=== PATIENT | female | born 1980 | race Two or more races ===

== ENCOUNTER 2017-08-16 15:59 | Emergency (ER) | payer OTHER ==
--- NOTE | 2017-08-16 16:01 | EDPHY ---
H & P HPI/ROS: HPI CHIEF COMPLAINT: Multiple complaints HISTORY OF PRESENT ILLNESS: Patient is a 36-year-old female she is otherwise healthy with no significant medical history does not take any daily medications she presents emergency room with multiple complaints. She reports approximately an hour ago she was standing and starting to household cook. She felt all the sudden very lightheaded. She felt that her feet were sweating, she felt nauseous. She states she got this pain that she describes as sharp stabbing pain in her epigastric region that radiates into her chest. Additionally she reports that her neck felt tight were stressed. She currently feels nauseous. She states that when she goes to stand up she noticed that she felt lightheaded. She reports that she has a dry mouth. Feet are sweaty. Feels anxious. Denies crushing chest pain, denies numbness or tingling in arms, denies severe neck pain. Describes her neck discomfort is tense in the back of her neck. Past Medical History: She reports her primary care doctor just told her that her vitamin-D is very low. Past Surgical History: No significant surgical history Social History: Denies daily use drugs alcohol tobacco products Family History: Noncontributory ROS REVIEW OF SYSTEMS: A comprehensive 10 point review of systems is otherwise negative aside from elements mentioned in the history of present illness. Exam Constitutional appears well nontoxic no acute distress, triage nursing summary reviewed, vital signs reviewed, awake/alert. Eyes normal conjunctivae and sclera, EOMI, PERRLA. HENT normal inspection, atraumatic, moist mucus membranes, no epistaxis, neck supple/ no meningismus, no raccoon eyes. Respiratory clear to auscultation bilaterally, normal breath sounds, no respiratory distress, no wheezing. Cardiovascular rate normal, regular rhythm, no murmur, no edema, distal pulses normal. Gastrointestinal soft, non-tender, no rebound, no guarding, normal bowel sounds, no distension, no pulsatile mass. Genitourinary no CVA tenderness. Musculoskeletal no midline vertebral tenderness, full range of motion, no calf swelling, no tenderness of extremities, no meningismus, good pulses, neurovascularly intact. Skin pink, warm, & dry, no rash, skin atraumatic. Neurologic awake, alert and oriented x 3, AAOx3, moves all 4 extremities equally, motor intact, sensory intact, CN II-XII intact, normal cerebellar, normal vision, normal speech. Psychiatric normal mood/affect. Heme/Lymph/Immune no lymphadenopathy. Differential Diagnosis: Includes but is not limited to in a particular order acute anxiety, cardiac arrhythmia, acute coronary syndrome, PE, viral syndrome, UTI, , infection, electrolyte disturbance Medical Decision Making: Plan for this patient EKG full engine monitor IV establishment with IV fluid bolus 1 L normal saline, IV Zofran for nausea, IV Pepcid for stomach upset, EKG, troponin, D-dimer and re-evaluate. Re-evaluation: EKG interpretation by me on record in [employer] 3D system. Impression time of EKG 1609, sinus rhythm rate of 80 Q wave variance in the inferior leads that are normal variant. Otherwise no acute ischemia specifically no ST elevation. No ST depression. No T-wave abnormalities. No prolonged intervals. Unremarkable EKG. 1854: Re-examination this time this patient is resting comfortably no acute distress. Has no chest pain or shortness of breath. Not vomiting. Feels well after IV Pepcid IV fluids and nausea medicine. EKG, D-dimer, troponin are negative. Chest x-ray unremarkable. Patient would like to go home. Return precautions discussed. I think cardiac etiology is unlikely given how healthy she is an young and no cardiac risk factors. However return precautions discussed. She has a nonischemic EKG normal troponin normal D-dimer. Feels better after IV Pepcid nausea medicine. Source: Patient - Personal History Tetanus Vaccine Date: 2012 - Medical/Surgical History Hx Asthma: No Hx Chronic Respiratory Disease: No Hx Diabetes: No Hx Cardiac Disease: No Hx Renal Disease: No Hx Cirrhosis: No Hx Alcoholism: No Hx HIV/AIDS: No Hx Splenectomy or Spleen Trauma: No Other PMH: Tubal ligation, 3 C-sections, cholecystectomy, recent diagnosis gastritis - Social History Smoking Status: Never smoked Constitutional: Initial Vital Signs Temperature (C) 36.6 C 08/16/17 16:04 Heart Rate 85 08/16/17 16:04 Respiratory Rate 14 08/16/17 16:04 Blood Pressure 140/93 H 08/16/17 16:04 O2 Sat (%) 100 08/16/17 16:04 O2 Delivery Mode Room Air Allergies/Adverse Reactions: acetaminophen [From Vicodin] Allergy (Verified 08/16/17 16:19) hydrocodone [From Vicodin] Allergy (Verified 08/16/17 16:19) morphine Allergy (Verified 08/16/17 16:18) Home Medications: Medication Instructions Recorded NK [No Known Home Meds] 05/12/15 Medical Decision Making - Diagnostics Imaging Results: Imaging Impressions Chest X-Ray 08/16/17 16:10 Impression: No significant radiographic abnormality. Specifically, a source for chest pain is not identified. - Data Points Laboratory Results: Laboratory Results 08/16/17 16:15 08/16/17 16:15 08/16/17 08/16/17 08/16/17 17:45 16:15 16:15 WBC RBC Hgb Hct MCV MCH MCHC RDW Plt Count MPV Neut % (Auto) Lymph % (Auto) Payne % (Auto) Eos % (Auto) Baso % (Auto) Nucleat RBC Rel Count Absolute Neuts (auto) Absolute Lymphs (auto) Absolute Monos (auto) Absolute Eos (auto) Absolute Basos (auto) Absolute Nucleated RBC Immature Gran % Immature Gran # PT INR APTT D-Dimer Sodium 143 mEq/L mEq/L (135-145) Potassium 3.5 mEq/L mEq/L (3.5-5.2) Chloride 102 mEq/L mEq/L (97-110) Carbon Dioxide 22 mEq/l mEq/l (22-31) Anion Gap 19 mEq/L H mEq/L (8-16) BUN 11 mg/dL mg/dL (7-23) Creatinine 0.7 mg/dL mg/dL (0.6-1.0) Estimated GFR > 60 Glucose 101 mg/dL H mg/dL (70-100) Calcium 9.7 mg/dL mg/dL (8.5-10.4) Magnesium 2.2 mg/dL mg/dL (1.6-2.3) Total Bilirubin 0.3 mg/dL mg/dL (0.1-1.4) Conjugated Bilirubin 0.1 mg/dL mg/dL (0.0-0.5) Unconjugated Bilirubin 0.2 mg/dL mg/dL (0.0-1.1) AST 38 IU/L IU/L (14-46) ALT 50 IU/L IU/L (9-52) Alkaline Phosphatase 74 IU/L IU/L (38-126) Creatine Kinase 159 IU/L H IU/L (0-156) CK-MB (CK-2) Fraction 1.23 ng/mL ng/mL (0.00-4.55) CK-MB (CK-2) % 0.8 % % (0.0-4.0) Creatine Kinase Interp NEGATIVE (NEGATIVE) Troponin I < 0.012 ng/mL ng/mL (0.000-0.034) NT-Pro-B Natriuret Pep 39 pg/mL pg/mL (0-125) Total Protein 7.5 g/dL g/dL (6.3-8.2) Albumin 4.4 g/dL g/dL (3.5-5.0) Lipase 185 IU/L IU/L (23-300) Beta HCG, Qual NEGATIVE Urine Color YELLOW Urine Appearance CLEAR Urine pH 6.0 (5.0-7.5) Ur Specific [place] <= 1.005 (1.002-1.030) Urine Protein NEGATIVE (NEGATIVE) Urine Ketones 1+ H (NEGATIVE) Urine Blood NEGATIVE (NEGATIVE) Urine Nitrate NEGATIVE (NEGATIVE) Urine Bilirubin NEGATIVE (NEGATIVE) Urine Urobilinogen 0.2 EU EU (0.2-1.0) Ur Leukocyte Esterase NEGATIVE (NEGATIVE) Urine Glucose NEGATIVE (NEGATIVE) 08/16/17 08/16/17 16:15 16:15 WBC 6.65 10^3/uL 10^3/uL (3.80-9.50) RBC 4.97 10^6/uL 10^6/uL (4.18-5.33) Hgb 14.4 g/dL g/dL (12.6-16.3) Hct 42.5 % % (38.0-47.0) MCV 85.5 fL fL (81.5-99.8) MCH 29.0 pg pg (27.9-34.1) MCHC 33.9 g/dL g/dL (32.4-36.7) RDW 12.9 % % (11.5-15.2) Plt Count 243 10^3/uL 10^3/uL (150-400) MPV 10.6 fL fL (8.7-11.7) Neut % (Auto) 56.1 % % (39.3-74.2) Lymph % (Auto) 36.8 % % (15.0-45.0) Payne % (Auto) 4.8 % % (4.5-13.0) Eos % (Auto) 1.5 % % (0.6-7.6) Baso % (Auto) 0.6 % % (0.3-1.7) Nucleat RBC Rel Count 0.0 % % (0.0-0.2) Absolute Neuts (auto) 3.73 10^3/uL 10^3/uL (1.70-6.50) Absolute Lymphs (auto) 2.45 10^3/uL 10^3/uL (1.00-3.00) Absolute Monos (auto) 0.32 10^3/uL 10^3/uL (0.30-0.80) Absolute Eos (auto) 0.10 10^3/uL 10^3/uL (0.03-0.40) Absolute Basos (auto) 0.04 10^3/uL 10^3/uL (0.02-0.10) Absolute Nucleated RBC 0.00 10^3/uL 10^3/uL (0-0.01) Immature Gran % 0.2 % % (0.0-1.1) Immature Gran # 0.01 10^3/uL 10^3/uL (0.00-0.10) PT 13.3 SEC SEC (12.0-15.0) INR 1.02 (0.83-1.16) APTT 28.5 SEC SEC (23.0-38.0) D-Dimer < 0.27 ug/mLFEU ug/mLFEU (0.00-0.50) Sodium Potassium Chloride Carbon Dioxide Anion Gap BUN Creatinine Estimated GFR Glucose Calcium Magnesium Total Bilirubin Conjugated Bilirubin Unconjugated Bilirubin AST ALT Alkaline Phosphatase Creatine Kinase CK-MB (CK-2) Fraction CK-MB (CK-2) % Creatine Kinase Interp Troponin I NT-Pro-B Natriuret Pep Total Protein Albumin Lipase Beta HCG, Qual Urine Color Urine Appearance Urine pH Ur Specific Flushing Urine Protein Urine Ketones Urine Blood Urine Nitrate Urine Bilirubin Urine Urobilinogen Ur Leukocyte Esterase Urine Glucose Medications Given: Discontinued Medications Famotidine (Pepcid) 20 mg IVP EDNOW ONE Stop: 08/16/17 16:11 Last Admin: 08/16/17 16:21 Dose: 20 mg Sodium Chloride (Ns) 1,000 mls @ 0 mls/hr IV EDNOW ONE; Wide Open PRN Reason: Protocol Stop: 08/16/17 16:11 Last Admin: 08/16/17 16:15 Dose: 1,000 mls Ondansetron HCl (Zofran) 4 mg IVP EDNOW ONE Stop: 08/16/17 16:11 Last Admin: 08/16/17 16:19 Dose: 4 mg Departure - Departure Disposition: Home, Routine, Self-Care Clinical Impression: Lightheaded Instructions: Near Syncope (ED), Lightheadedness (ED) Additional Instructions: 1. Drink lots of fluids stay well-hydrated. 2. Return emergency room if you have worsening symptoms includes worsening pain , fever, vomiting. Or if you pass out. Referrals: ANNIKA CLAY,. [Primary Care Provider] - As per Instructions
[2017-08-16] MEDS ORDERED: FAMOTIDINE 20 MG/2 ML SDV IVP ONE (16:10)
[2017-08-16] MEDS ORDERED: ONDANSETRON 4 MG/2 ML VIAL IVP ONE (16:10)
[2017-08-16] MEDS ORDERED: NS 1,000 ML IV ONE (16:10)
--- NOTE | 2017-08-16 16:11 | CPEKG ---
Heart Rate: 80 RR Interval: 750 P-R Interval: 164 QRSD Interval: 86 QT Interval: 364 QTC Interval: 420 P Tracy: 62 QRS Tracy: 64 T Wave Tracy: -6 EKG Severity - BORDERLINE ECG - EKG Impression: SINUS RHYTHM EKG Impression: BORDERLINE Q WAVES IN INFERIOR LEADS EKG Impression: INFERIOR Q WAVES, PROBABLY NORMAL VARIATION Electronically Signed By: Spike Sandoval 16-Aug-2017 22:09:21
[2017-08-16 16:23] LABS: PLATELET COUNT 243 10^3/uL (150-400)
[2017-08-16 16:51] LABS: INR 1.02 (0.83-1.16); PROTIME(PATIENT) 13.3 SEC (12.0-15.0)
[2017-08-16 17:06] LABS: CREATINE KINASE 159 IU/L (0-156)
[2017-08-16 19:03] VITALS: BP 122/63
[2017-08-16 19:09] VITALS: RESP 18; O2SAT 97
[2017-08-16 19:10] VITALS: PULSE 78; TEMP 98
== END 2017-08-16 19:09 | disposition home or self-care (01) ==
LOC: CED 15:59
DX: R42 Dizziness and giddiness (principal); E86.9 Volume depletion, unspecified
CPT/HCPCS: 71045-PO; 80048-PO; 80076-PO; 81003-PO; 82550-PO; 82553-PO; 83690-PO; 83735-PO; 83880-PO; 84484-PO; 84703-PO; 85025-PO; 85378-PO; 85610-PO; 85730-PO; 96374; J2405